=== PATIENT | female | born 1960 | race Caucasian/White ===

== ENCOUNTER 2017-07-05 07:08 | Emergency (ER) | payer BC, MEDICAID ==
[2017-07-05] MEDS ORDERED: ASPIRIN 325 MG TABLET PO ONE (07:28)
--- NOTE | 2017-07-05 07:33 | Emergency Department Record ---
History of Present Illness - General Chief Complaint: Chest Pain Stated Complaint: CHEST PAIN Time Seen by Provider: 07/05/17 07:20 Source: Patient Mode of Arrival: Ambulatory Limitations: No limitations - History of Present Illness Initial Comments: The patient is here due to CP for the last hour and a half. She woke up at 6am and had sharp stabbing L sided CP that lasted 15 minutes. There was no SOB, JAYNE , sweating or nausea with it. The pain then resolved and then did return about 20 minutes ago and has been intermittent since. The sharp stabbing pain is now lasting 2-3 minutes and again is not associated with any symptoms of JAYNE, SOB, sweating or nausea. The patient has no hx of similar issues and no cardiac hx. She states she did have a neg stress Echo 3 months ago. MD Complaint: Chest pain Onset/Timin -: Hour(s) Onset: Awoke with symptoms, During rest Pain Location: Substernal Pain Radiation: None Quality: Sharp Consistency: Intermittent Improves With: Nothing Worsens With: Nothing Treatments Prior to Arrival: None - Related Data Home Medications Medication Instructions Recorded Confirmed Last Taken Amlodipine Besylate [Norvasc] 5 mg PO DAILY 07/05/17 07/05/17 07/05/17 Aspirin Chewable 81 mg PO DAILY 07/05/17 07/05/17 07/05/17 Esomeprazole Magnesium [Nexium] 20 mg PO BID 07/05/17 07/05/17 07/05/17 Hydrochlorothiazide [Hctz] 25 mg PO DAILY 07/05/17 07/05/17 07/05/17 Isosorbide Mononitrate [Imdur] 35 mg PO DAILY 07/05/17 07/05/17 07/04/17 Lorazepam [Ativan] 0.5 mg PO ASDIR 07/05/17 07/05/17 07/05/17 Tolterodine Tartrate [Detrol] 2 mg PO DAILY 07/05/17 07/05/17 07/04/17 Venlafaxine HCl [Effexor] 150 mg PO DAILY 07/05/17 07/05/17 07/05/17 Allergies Allergy/AdvReac Type Severity Reaction Status Date / Time No Known Drug Allergies Allergy Verified 07/05/17 07:16 Travel Screening - Travel/Exposure Within Last 30 Days Have you traveled within the last 30 days?: No Review of Systems Constitutional: Denies: Chills, Fever Eyes: Denies: Eye discharge ENT: Denies: Congestion Respiratory: Denies: Cough, Dyspnea Cardiovascular: Denies: Arrhythmia Endocrine: Denies: Fatigue Gastrointestinal: Denies: Abdominal pain Genitourinary: Denies: Dysuria Musculoskeletal: Denies: Arthralgia Past Medical History - SOCIAL HISTORY Smoking Status: Never smoker Alcohol Use: None Drug Use: None - RESPIRATORY Hx Respiratory Disorders: No - CARDIOVASCULAR Hx Cardio Disorders: Yes Hx Hypertension: Yes - NEURO Hx Neuro Disorders: No - GI Hx GI Disorders: Yes Hx Reflux: Yes - Hx Genitourinary Disorders: No - ENDOCRINE Hx Endocrine Disorders: No - MUSCULOSKELETAL Hx Musculoskeletal Disorders: No - PSYCH Hx Psych Problems: Yes Hx Anxiety: Yes Hx Depression: Yes - HEMATOLOGY/ONCOLOGY Hx Hematology/Oncology Disorders: No Family Medical History Any Significant Family History?: Yes Hx Heart Disease: Father Physical Exam - General General Appearance: Alert, Oriented x3, Cooperative, No acute distress - Head Head exam: Atraumatic, Normocephalic, Normal inspection - Eye Eye exam: Normal appearance, PERRL - Neck Neck exam: Normal inspection, Full ROM. negative: Tenderness - Respiratory Respiratory exam: Normal lung sounds bilaterally. negative: Respiratory distress - Cardiovascular Cardiovascular Exam: Regular rate, Normal rhythm, Normal heart sounds - GI/Abdominal GI/Abdominal exam: Soft, Normal bowel sounds. negative: Tenderness - Extremities Extremities exam: Normal inspection, Full ROM, Normal capillary refill. negative: Tenderness - Back Back exam: Reports: Normal inspection - Neurological Neurological exam: Alert. negative: Motor sensory deficit Course Vital Signs 07/05/17 07:11 Pulse Rate 86 Respiratory 18 Rate Blood Pressure 138/84 Pulse Ox 96 - Reevaluation(s) Reevaluation #1: The patient is doing very well at this time. She is resting comfortably but is still having intermittent L chest sharp pains. I did discuss the plan with the patient. Due to her EKG changes and no clear cause for the pain I did recommend a short stay hospital admission and the patient agreed. She would like to be transferred to [facility] [place]. 07/05/17 09:28 Reevaluation #2: The patient is doing very well at this time. She chose to be transferred to [facility] [place] due to the chest discomfort. I did discuss the case with Dr. Bakr and he agrees with the plan and will consult. I then did discuss the case with Dr. Polanco and he accepts the patient. 07/05/17 09:50 Medical Decision Making - Data Complexity MDM Data: Labs Ordered and/or Reviewed, X-Ray Ordered and/or Reviewed, EKG Ordered and/or Reviewed - Lab Data Result diagrams: 07/05/17 07:38 07/05/17 07:25 - EKG Data -: EKG Interpreted by Me EKG: Abnormal EKG (Nonspecific anterior ST-T changes.) - Radiology Data Radiology results: Report reviewed (CXR: neg) Disposition Disposition: Transfer Clinical Impression: Chest pain Qualifiers: Chest pain type: unspecified Qualified Code(s): R07.9 - Chest pain, unspecified Disposition: Acute Care Hospital Transfer Transfer To: [facility] [place] Reason For Transfer: Cardiology Accepting Physician: Sherri Time Discussed w/Accepting Physician: 09:50 Condition: (2) Stable Forms: Patient Portal Access Time of Disposition: 09:50 Quality - Quality Measures Quality Measures: N/A - Blood Pressure Screening View Details: Yes Does Patient Have Any of the Following: No Blood Pressure Classification: Pre-Hypertensive BP Reading Systolic Measurement: 138 Diastolic Measurement: 84 Screening for High Blood Pressure: < Pre-Hypertensive BP, F/U Documented > [ [id number]] Pre-Hypertensive Follow-up Interventions: Referral to alternative/primary care provider.
[2017-07-05 07:41] LABS: BASO % 0.3 % (0-6); EOS % 0.7 % (0-6); GRAN % 49.5 % (47-80); HEMATOCRIT 37.6 % (35.0-47.0); HEMOGLOBIN 12.5 gm/dl (11.6-16.0); LYMPH % 39.1 % (16-45); MEAN CELL VOLUME 87.2 fl (81-97); MEAN CORPUSCULAR HGB CONC 33.2 g/dl (32-36); MEAN PLATELET VOLUME 8.8 fl (7.4-10.4); MONO % 10.4 % (0-9); PLATELET COUNT 428 K/uL (130-400); RED BLOOD COUNT 4.31 M/uL (3.80-5.40); RED CELL DISTRIBUTION WIDTH 12.7 % (11.5-14.5); WHITE BLOOD COUNT W/O DIFF 6.8 K/uL (4.2-12.2)
[2017-07-05 07:56] LABS: BLOOD UREA NITROGEN 11 mg/dL (6-20); CREATININE 0.8 mg/dL (0.5-0.9); EST GLOMERULAR FILTRATION RATE > 60 mL/min
[2017-07-05 07:59] LABS: GLUCOSE,RANDOM 104 mg/dL (74-109)
[2017-07-05 08:02] LABS: CREATINE PHOSPHOKINASE 239 U/L (26-192)
[2017-07-05 08:03] LABS: CKMB 2.5 ng/mL (<3.77)
[2017-07-05] MEDS ORDERED: POTASSIUM CHLORIDE 20 MEQ TABLET PO ONE (08:08)
[2017-07-05 08:27] LABS: INR 0.9; PARTIAL THROMBOPLASTIN TIME 24.6 SECONDS (24.5-39.1)
--- NOTE | 2017-07-06 09:18 | RADIOLOGY REPORT ---
EXAM: CHEST, TWO VIEWS HISTORY: LEFT SIDED CHEST PAIN THIS MORNING. TECHNIQUE: PA and lateral views of the chest were obtained. Comparison: 01/12/11. FINDINGS: The heart, mediastinum, and pulmonary vasculature are normal. The lungs are clear. There is no pneumothorax or effusion. The bones appear intact. IMPRESSION: NO ACUTE CHEST PATHOLOGY. JOB NUMBER: [id number] MTDD
== END 2017-07-05 11:41 | disposition short-term general hospital (02) ==
LOC: ER 07:08
DX: R07.89 Other chest pain (principal); I10 Essential (primary) hypertension
CPT/HCPCS: 71046; 80048; 82550; 82553; 84484; 85025; 85379; 85610; 85730; 93005; 93010; 99285

== ENCOUNTER 2018-08-11 20:10 | Emergency (ER) | payer MEDICAID ==
[2018-08-11 20:44] LABS: ABSOLUTE NEUTROPHIL COUNT 6.11; BASO % 0.3 % (0-6); EOS % 0.5 % (0-6); GRAN % 59.3 % (47-80); HEMOGLOBIN 12.9 gm/dl (11.6-16.0); LYMPH % 28.3 % (16-45); MEAN CELL VOLUME 86.7 fl (81-97); MEAN CORPUSCULAR HEMOGLOBIN 28.7 pg (27-33); MEAN CORPUSCULAR HGB CONC 33.1 g/dl (32-36); MEAN PLATELET VOLUME 8.4 fl (7.4-10.4); MONO % 11.6 % (0-9); PLATELET COUNT 484 K/uL (130-400); RED CELL DISTRIBUTION WIDTH 12.6 % (11.5-14.5); WHITE BLOOD COUNT W/O DIFF 10.3 K/uL (4.2-12.2)
[2018-08-11 20:45] LABS: URINE APPEARANCE CLEAR; URINE BILIRUBIN NEGATIVE (NEGATIVE); URINE BLOOD TRACE-I (NEGATIVE); URINE COLOR STRAW; URINE GLUCOSE (UA) NEGATIVE (NEGATIVE); URINE KETONE NEGATIVE (NEGATIVE); URINE LEUKOCYTE ESTERASE NEGATIVE (NEGATIVE); URINE NITRITE NEGATIVE (NEGATIVE); URINE PROTEIN NEGATIVE (NEGATIVE); URINE UROBILINOGEN 0.2 E.U./dL (0.20 - 1.00)
[2018-08-11] MEDS ORDERED: 0.9 % SODIUM CHLORIDE 1,000 ML BAG IV ONE (20:46)
[2018-08-11 20:54] LABS: URINE RBC 0 - 2 (NONE SEEN); URINE SQUAMOUS EPITHELIAL CELL 0 - 2 /hpf; URINE WBC NONE SEEN (0-2/hpf)
[2018-08-11 20:58] LABS: BLOOD UREA NITROGEN 10 mg/dL (8-23); CREATININE 0.8 mg/dL (0.5-0.9); EST GLOMERULAR FILTRATION RATE > 60 mL/min
[2018-08-11 21:01] LABS: GLUCOSE,RANDOM 101 mg/dL (74-109)
[2018-08-11 21:03] LABS: ALB/GLOB RATIO 1.2 (1.1-1.8); ALBUMIN 4.4 g/dL (4.0-5.0); ALKALINE PHOSPHATASE 96 U/L (35-104); ALT/SGPT 40 U/L (<33); AST/SGOT 39 U/L (10.0-35.0)
[2018-08-11] MEDS ORDERED: AMPICILLIN SODIUM/SULBACTAM NA 3 G in 0.9 % SODIUM CHLORIDE 100ML 100 ML IVPB ONE (21:38)
[2018-08-11] MEDS ORDERED: CIPROFLOXACIN LACTATE/D5W 400 MG/200 ML BAG IVPB ONE (21:40)
[2018-08-11] MEDS ORDERED: METRONIDAZOLE 250 MG TABLET PO ONE (22:12)
--- NOTE | 2018-08-11 22:20 | Emergency Department Record ---
History of Present Illness - General Chief Complaint: Abdominal Pain Stated Complaint: ABD PAIN Time Seen by Provider: 08/11/18 20:43 Source: Patient Mode of Arrival: Ambulatory Limitations: No limitations - History of Present Illness Initial Comments: pt has has llq pain all week that is getting worse. no n/v/c MD Complaint: Abdominal pain Onset/Timin -: Days(s) Location: LLQ Radiation: None Migration to: No migration Severity: Moderate Severity scale (1-10): 8 Quality: Sharp, Stabbing Consistency: Constant, Getting worse Improves With: Rest Worsens With: Movement, Other Associated Symptoms: Denies other symptoms - Related Data LMP (females 10-50): Unknown Patient : No Previous Rx's Medication Instructions Recorded Ciprofloxacin HCl [Cipro] 500 mg PO Q12HR #20 tablet 08/11/18 Hydrocodone/Acetaminophen [[place] 1 each PO Q6HR #12 tablet 08/11/18 5-325 Tablet] Metronidazole [Flagyl] 500 mg PO Q8H #30 tablet 08/11/18 Allergies Allergy/AdvReac Type Severity Reaction Status Date / Time No Known Drug Allergies Allergy Verified 07/05/17 07:16 Travel Screening - Travel/Exposure Within Last 30 Days Have you traveled within the last 30 days?: No - Travel Symptoms Symptom Screening: None Review of Systems Reviewed: No additional complaints except as noted below Constitutional: Reports: As per HPI. Denies: Chills, Fever, Malaise, Night sweats, Weakness, Weight change Eyes: Reports: As per HPI. Denies: Eye discharge, Eye pain, Photophobia, Vision change ENT: Reports: As per HPI. Denies: Congestion, Dental pain, Ear pain, Epistaxis, Hearing loss, Throat pain Respiratory: Reports: As per HPI. Denies: Cough, Dyspnea, Hemoptysis, Stridor, Wheezes Cardiovascular: Reports: As per HPI. Denies: Arrhythmia, Chest pain, Dyspnea on exertion, Edema, Murmurs, Orthopnea, Palpitations, Paroxysmal nocturnal dyspnea, Rheumatic Fever, Syncope Endocrine: Reports: As per HPI. Denies: Fatigue, Heat or cold intolerance, Polydipsia, Polyuria Gastrointestinal: Reports: As per HPI, Abdominal pain. Denies: Constipation, Diarrhea, Hematemesis, Hematochezia, Melena, Nausea, Vomiting Genitourinary: Reports: As per HPI. Denies: Abnormal menses, Discharge, Dyspareunia, Dysuria, Frequency, Hematuria, Incontinence, Retention, Urgency Musculoskeletal: Reports: As per HPI. Denies: Arthralgia, Back pain, Gout, Joint swelling, Myalgia, Neck pain Skin: Reports: As per HPI. Denies: Bruising, Change in color, Change in hair/nails, Lesions, Pruritus, Rash Neurological: Reports: As per HPI. Denies: Abnormal gait, Confusion, Headache, Numbness, Paresthesias, Seizure, Tingling, Tremors, Vertigo, Weakness Psychiatric: Reports: As per HPI. Denies: Anxiety, Auditory hallucinations, Depression, Homicidal thoughts, Suicidal thoughts, Visual hallucinations Hematological/Lymphatic: Reports: As per HPI. Denies: Anemia, Blood Clots, Easy bleeding, Easy bruising, Swollen glands Past Medical History - SOCIAL HISTORY Smoking Status: Never smoker Alcohol Use: None Drug Use: None - RESPIRATORY Hx Respiratory Disorders: No - CARDIOVASCULAR Hx Cardio Disorders: Yes Hx Hypertension: Yes - NEURO Hx Neuro Disorders: No - GI Hx GI Disorders: Yes Hx Reflux: Yes - Hx Genitourinary Disorders: No - ENDOCRINE Hx Endocrine Disorders: No - MUSCULOSKELETAL Hx Musculoskeletal Disorders: No - PSYCH Hx Psych Problems: Yes Hx Anxiety: Yes Hx Depression: Yes - HEMATOLOGY/ONCOLOGY Hx Hematology/Oncology Disorders: No Family Medical History Any Significant Family History?: Yes Hx Heart Disease: Father Physical Exam - General General Appearance: Alert, Oriented x3, Cooperative, No acute distress - Head Head exam: Normal inspection - Eye Eye exam: Normal appearance, PERRL, EOMI Pupils: Normal accommodation - ENT ENT exam: Normal exam, Mucous membranes moist, Normal external ear exam, Normal orophraynx Ear exam: Normal external inspection. negative: External canal tenderness Nasal Exam: Normal inspection. negative: Discharge, Sinus tenderness Mouth exam: Normal external inspection, Tongue normal Teeth exam: Normal inspection. negative: Dental caries Throat exam: Normal inspection. negative: Tonsillar erythema, Tonsillar exudate - Neck Neck exam: Normal inspection, Full ROM. negative: Tenderness - Respiratory Respiratory exam: Normal lung sounds bilaterally. negative: Respiratory distress - Cardiovascular Cardiovascular Exam: Regular rate, Normal rhythm, Normal heart sounds - GI/Abdominal GI/Abdominal exam: Soft, Normal bowel sounds, Tenderness - Rectal Rectal exam: Deferred - exam: Deferred - Extremities Extremities exam: Normal inspection, Full ROM, Normal capillary refill. negative: Tenderness - Back Back exam: Reports: Normal inspection, Full ROM. Denies: Muscle spasm, Rash noted, Tenderness - Neurological Neurological exam: Alert, CN II-XII intact, Normal gait, Oriented X3 - Psychiatric Psychiatric exam: Normal affect, Normal mood - Skin Skin exam: Dry, Intact, Normal color, Warm Course Vital Signs 08/11/18 20:29 Temperature 99.1 F Pulse Rate 85 Respiratory 22 Rate Blood Pressure 169/95 Pulse Ox 95 - Reevaluation(s) Reevaluation #1: 08/11/18 22:21 d/w dr fulton who will see pt Medical Decision Making - Lab Data Result diagrams: 08/11/18 20:36 08/11/18 20:36 Lab Results 08/11/18 08/11/18 08/11/18 Range/Units 20:36 20:36 20:36 WBC 10.3 (4.2-12.2) K/uL RBC 4.50 (3.80-5.40) M/uL Hgb 12.9 (11.6-16.0) gm/dl Hct 39.0 (35.0-47.0) % MCV 86.7 (81-97) fl MCH 28.7 (27-33) pg MCHC 33.1 (32-36) g/dl RDW 12.6 (11.5-14.5) % Plt Count 484 H (130-400) K/uL MPV 8.4 (7.4-10.4) fl Gran % 59.3 (47-80) % Lymphocytes % 28.3 (16-45) % Monocytes % 11.6 H (0-9) % Eosinophils % 0.5 (0-6) % Basophils % 0.3 (0-6) % Absolute Neutrophils 6.11 Sodium 135 L (136-145) mmol/L Potassium 3.7 (3.4-4.5) mmol/L Chloride 92 L (98-107) mmol/L Carbon Dioxide 30.0 H (22-29) mmol/L Anion Gap 13.0 (7-16) BUN 10 (8-23) mg/dL Creatinine 0.8 (0.5-0.9) mg/dL Estimated GFR > 60 mL/min Random Glucose 101 (74-109) mg/dL Calcium 9.8 (8.8-10.2) mg/dL Total Bilirubin 0.30 (0.2-1.0) mg/dL AST 39 H (10.0-35.0) U/L ALT 40 H (<33) U/L Alkaline Phosphatase 96 (35-104) U/L Total Protein 8.0 (6.6-8.7) g/dL Albumin 4.4 (4.0-5.0) g/dL Globulin 3.6 (1.4-4.8) gm/dL Albumin/Globulin Ratio 1.2 (1.1-1.8) Lipase (13-60) U/L Urine Color Straw Urine Appearance Clear Urine pH 7.0 (5.0-8.0) Ur Specific Jean <= 1.005 (1.002-1.030) Urine Protein Negative (NEGATIVE) Urine Glucose (UA) Negative (NEGATIVE) Urine Clinitest Urine Ketones Negative (NEGATIVE) Urine Blood Trace-i (NEGATIVE) Urine Nitrite Negative (NEGATIVE) Urine Bilirubin Negative (NEGATIVE) Urine Ictotest Prot Sulfosalicylic Acd Urine Urobilinogen 0.2 (0.20 - 1.00) E.U./dL Ur Leukocyte Esterase Negative (NEGATIVE) Urine RBC 0 - 2 (NONE SEEN) Urine WBC None seen (0-2/hpf) U Non-Squamous Epi Cells 0 - 2 /hpf 08/11/18 08/11/18 Range/Units 20:36 20:46 WBC (4.2-12.2) K/uL RBC (3.80-5.40) M/uL Hgb (11.6-16.0) gm/dl Hct (35.0-47.0) % MCV (81-97) fl MCH (27-33) pg MCHC (32-36) g/dl RDW (11.5-14.5) % Plt Count (130-400) K/uL MPV (7.4-10.4) fl Gran % (47-80) % Lymphocytes % (16-45) % Monocytes % (0-9) % Eosinophils % (0-6) % Basophils % (0-6) % Absolute Neutrophils Sodium (136-145) mmol/L Potassium (3.4-4.5) mmol/L Chloride (98-107) mmol/L Carbon Dioxide (22-29) mmol/L Anion Gap (7-16) BUN (8-23) mg/dL Creatinine (0.5-0.9) mg/dL Estimated GFR mL/min Random Glucose (74-109) mg/dL Calcium (8.8-10.2) mg/dL Total Bilirubin (0.2-1.0) mg/dL AST (10.0-35.0) U/L ALT (<33) U/L Alkaline Phosphatase (35-104) U/L Total Protein (6.6-8.7) g/dL Albumin (4.0-5.0) g/dL Globulin (1.4-4.8) gm/dL Albumin/Globulin Ratio (1.1-1.8) Lipase 25 (13-60) U/L Urine Color Cancelled Urine Appearance Cancelled Urine pH Cancelled (5.0-8.0) Ur Specific Jean Cancelled (1.002-1.030) Urine Protein Cancelled (NEGATIVE) Urine Glucose (UA) Cancelled (NEGATIVE) Urine Clinitest Cancelled Urine Ketones Cancelled (NEGATIVE) Urine Blood Cancelled (NEGATIVE) Urine Nitrite Cancelled (NEGATIVE) Urine Bilirubin Cancelled (NEGATIVE) Urine Ictotest Cancelled Prot Sulfosalicylic Acd Cancelled Urine Urobilinogen Cancelled (0.20 - 1.00) E.U./dL Ur Leukocyte Esterase Cancelled (NEGATIVE) Urine RBC (NONE SEEN) Urine WBC (0-2/hpf) U Non-Squamous Epi Cells /hpf Disposition Disposition: Discharge Clinical Impression: Diverticulitis Disposition: Home, Self-Care Condition: (1) Good Instructions: Diverticulitis (ED) Additional Instructions: follow up with dr fulton on thursday. return sooner if worse. Prescriptions: Hydrocodone/Acetaminophen [[place] 5-325 Tablet] 1 each PO Q6HR #12 tablet Ciprofloxacin HCl [Cipro] 500 mg PO Q12HR #20 tablet Metronidazole [Flagyl] 500 mg PO Q8H #30 tablet Referrals: Samy Fulton [DOCTOR OF OSTEOPATH] - [facility] [Provider Group] Quality - Quality Measures Quality Measures: N/A - Blood Pressure Screening Does Patient Have Any of the Following: Active Dx of HTN Blood Pressure Classification: Hypertensive Reading Systolic Measurement: 169 Diastolic Measurement: 95 Screening for High Blood Pressure: Patient Exclusion, Hx of HTN [Z4063]
[2018-08-11] MEDS ORDERED: ONDANSETRON HCL IV 4 MG/2 ML VIAL IVP ONE (22:24)
[2018-08-11] MEDS ORDERED: HYDROMORPHONE HCL 2 MG/ML VIAL IVP ONE (22:24)
--- NOTE | 2018-08-13 09:43 | CT SCAN REPORT ---
EXAM: CT SCAN OF THE ABDOMEN AND PELVIS WITHOUT CONTRAST HISTORY: PERSISTENT LEFT LOWER QUADRANT ABDOMINAL PAIN. WORSENING SYMPTOMS. TECHNIQUE: Standard CT imaging of the abdomen and pelvis was performed without contrast. Comparison: None. FINDINGS: A calcified granuloma is present at the right lung base. The lung bases are otherwise clear. There is mild hepatic steatosis. The gallbladder is surgically absent. The biliary tree, pancreas, spleen, and adrenal glands are normal. The kidneys and ureters are unremarkable. The aorta is normal in caliber. There is no retroperitoneal lymphadenopathy. There is mild acute sigmoid diverticulitis with adjacent inflammatory change. There is no evidence for abscess or pneumoperitoneum. The remaining large and small bowel loops including the appendix are normal. The uterus is surgically absent. the urinary bladder appears normal. Degenerative changes are present within the spine. There are no acute osseous abnormalities. IMPRESSION: 1. MILD ACUTE SIGMOID DIVERTICULITIS WITH NO EVIDENCE FOR ABSCESS OR PNEUMOPERITONEUM. 2. MILD HEPATIC STEATOSIS. 3. POST SURGICAL CHANGES ABOVE. JOB NUMBER: [id number] [facility]
== END 2018-08-11 22:52 | disposition home or self-care (01) ==
LOC: ER 20:10
DX: K57.32 Diverticulitis of large intestine without perforation or abscess without bleeding (principal); I10 Essential (primary) hypertension
CPT/HCPCS: 99284 ×2; 96365; 83690; 85025; 80053; 81001; 74176; J0744; J2405; J1170; J7030